=== PATIENT | female | born 1980 | race Caucasian/White ===

== ENCOUNTER 2017-03-16 17:59 | Emergency (ER) | payer MEDICARE ==
--- NOTE | ~2017-03-16 | EKG ---
PATIENT: TC SANDOAVL UNIT #: [id number] Ventricular Rate: 74 BPM Atrial Rate: 74 BPM P-R Interval: 138 ms QRS Duration: 104 ms Q-T Interval: 384 ms QTC Calculation(Bezet): 426 ms P [place]: 20 degrees Calculated R [place]: 15 degrees Calculated T [place]: 10 degrees Diagnosis Line: Normal sinus rhythm Diagnosis Line: Low voltage QRS Diagnosis Line: Incomplete right bundle branch block Diagnosis Line: Nonspecific T wave abnormality Diagnosis Line: Borderline ECG Baseline wander Diagnosis Line: When compared with ECG of 13-JUL-2016 16:34, Diagnosis Line: Incomplete right bundle branch block is now Diagnosis Line: Present Diagnosis Line: Confirmed by MILAGROS LEE MD ([id number]) on 03/17/2017 Diagnosis Line: 10:03:19 AM INTERPRETING MD: ROSA WAGNER
--- NOTE | ~2017-03-16 | CR63 ---
[facility] A Service of [facility] & [facility] RADIOLOGY TEXT RESULTS PATIENT: TC SANDOVAL LOCATION: [facility] : [birth year] UNIT #: [id number] AGE: [address]: Vinicius Obando MD SEX: F ORDER DR: [id number] [facility] [address] [place], [place] [address] [id number] E MR#: [id number] Acc #: [id number] NAME: TC SANDOVAL : 1980 SEX: F STUDY DATE/TIME: 03/16/2017 19:58 UNIT: [facility] ROOM: STUDY DESCRIPTION: CR Chest 2 View Attending Physician: Vinicius Obando M.D. Ordering Physician: Vinicius Obando M.D. Primary Care Physician: Theresa Machado Aprn MEDICAL IMAGING REPORT This report is preliminary unless electronic signature is present EXAM PA and lateral chest HISTORY Cough and shortness of air, congestion and fever for 10 days. FINDINGS 2 views of the chest demonstrate the cardiac size and pulmonary vascularity are normal. No infiltrates. Minimal fluid or pleural thickening at the lateral left base. Sternotomy with mediastinal clips. Right IJ port catheter tip in the right atrium is approximately 3 cm beyond the junction SVC and right atrium. Mild hypertrophic spurring lower thoracic spine. IMPRESSION 1. No pulmonary infiltrates. 2. Minimal fluid or pleural thickening at the left base. 3. Prior cardiac surgery. Dictated by... Phong Louie M.D. THIS IS AN ELECTRONICALLY VERIFIED REPORT Phong Louie M.D. at 03/16/2017 11:31 PM DFL/lindsay TD: 03/16/2017 22:19 JOB #: [id number] MEDICAL IMAGING REPORT Page 1 of 1 COPY
[~2017-03-16 17:59] MED LIST: ALBUTEROL MININEB NEB; AVELOX400 M1 PO; BENTYL20 MG PO; DEPAKOTE PO; DEPAKOTE250 MG PO; FERRO-TIME325 MG PO; FLORASTOR250 M1 PO; HUMIBID-LA600 MG PO; HYDROCODON-ACE1 EAC9 PO; KLONOPIN1 MG PO; NEURONTIN300 MG PO; NORCO 10-325 TA1 TAB PO; NYSTATIN5 ML; NYSTATIN5 ML PO; OMEPRAZOLE20 M2; OMEPRAZOLE40 M1 PO; PERFOROMIS20 MCG/2 M INH; PHENERGAN25 M1 PO; PREDNISONE PO; PREDNISONE10 MG/DOSE PO; PROAIR RESPICL90 MCG INH; PULMICORT0.5 MG/2 M INH; REMERON30 MG PO; SINGULAIR PO; SOF-LAX100 MG PO; STIOLTO RESPIMAT4 GM INH; TOPAMAX PO; TRAZODONE PO; WELLBUTRIN; WELLBUTRIN SR150 M1 PO; ZANAFLEX4 M1 PO; ZANAFLEX6 MG; ZOFRAN SL; ZOFRANODT SL; ZYRTEC10 M1 PO
[2017-03-16 19:17] LABS: BASOPHIL# 0.1 X10e3 (0-0.3); BASOPHIL% 0.5 % (0-2.5); EOSINOPHIL# 0.3 X10e3 (0-0.7); EOSINOPHIL% 2.4 % (0.0-7.0); HEMOGLOBIN 14.2 gm/dL (12.0-16.0); LYMPHOCYTE# 2.6 X10e3 (1.0-3.5); LYMPHOCYTE% 22.7 % (17.0-45.0); MEAN CELL VOLUME 93.3 FL (83-96); MEAN CORPUSCULAR HEMOGLOBIN 30.7 PG (28-34); MEAN CORPUSCULAR HGB CONC 32.9 g/dL (30-36); MEAN PLATELET VOLUME 8.4 FL (6.5-11.5); MONOCYTE# 0.7 X10e3 (0-1.0); MONOCYTE% 6.2 % (3.0-12.0); NEUTROPHIL# 7.9 X10e3 (1.5-7.1); NEUTROPHIL% 68.2 % (40-75); PLATELET COUNT 184 X10e3 (140-420); RED BLOOD COUNT 4.61 X10e (3.90-5.30); RED CELL DISTRIBUTION WIDTH 14.8 % (11.0-15.5); WHITE BLOOD COUNT 11.6 X10e3 (4.0-10.5)
[2017-03-16 19:22] LABS: DIFF IND NO
[2017-03-16 19:41] LABS: ALBUMIN SERUM 3.5 g/dL (3.5-5.0); BILIRUBIN, DIRECT 0.1 mg/dL (0.0-0.2); BILIRUBIN,INDIRECT 0.4 mg/dL (0.0-0.9); BILIRUBIN,TOTAL 0.5 mg/dL (0.2-2.0); BUN/CREATININE RATIO 13.33; CALCIUM SERUM 8.4 mg/dL (8.4-10.2); CREATININE SERUM 0.6 mg/dL (0.6-1.4); GLOM FILT RATE Estimated 118.1 mL/min (>60); POTASSIUM 3.8 mmol/L (3.5-5.1); PROTEIN TOTAL SERUM 6.3 g/dL (6.0-8.3)
== END 2017-03-16 22:18 | disposition home or self-care (01) ==
LOC: CED 17:59
PROVIDERS: Emergency Medicine
DX: J20.9 Acute bronchitis, unspecified (principal); J44.9 Chronic obstructive pulmonary disease, unspecified; F17.200 Nicotine dependence, unspecified, uncomplicated; Z86.711 Personal history of pulmonary embolism; Z90.49 Acquired absence of other specified parts of digestive tract; Z90.710 Acquired absence of both cervix and uterus
CPT/HCPCS: 36415; 71020; 80048; 80076; 85025; 87040; 93005; 94640; 96374; 99284; J2930

== ENCOUNTER 2017-05-29 17:15 | Emergency (ER) | payer MEDICARE ==
[~2017-05-29] VITALS: Ht 157.5 cm; Wt 104.3 kg
--- NOTE | ~2017-05-29 | EKG ---
PATIENT: TC SANDOVAL UNIT #: [id number] Ventricular Rate: 108 BPM Atrial Rate: 108 BPM P-R Interval: 120 ms QRS Duration: 98 ms Q-T Interval: 352 ms QTC Calculation(Bezet): 471 ms P [place]: 29 degrees Calculated R [place]: -3 degrees Calculated T [place]: 5 degrees Diagnosis Line: Suspect unspecified pacemaker failure Diagnosis Line: Sinus tachycardia Diagnosis Line: Incomplete right bundle branch block Diagnosis Line: Nonspecific T wave abnormality Diagnosis Line: Abnormal ECG Diagnosis Line: When compared with ECG of 16-MAR-2017 18:43, Diagnosis Line: No significant change was found Diagnosis Line: Confirmed by VANGIE LEI MD ([id number]) on Diagnosis Line: 05/29/2017 11:18:10 PM INTERPRETING MD: QUIQUE WAGNER
== END 2017-05-29 19:20 | disposition left against medical advice (07) ==
LOC: CED 17:15
DX: Z53.21 Procedure and treatment not carried out due to patient leaving prior to being seen by health care provider (principal)
CPT/HCPCS: 93005